=== PATIENT | female | born 1965 | race Caucasian/White ===

== ENCOUNTER 2024-07-11 20:56 | Emergency (ER) | payer BC ==
--- NOTE | 2024-07-11 21:35 | ED ---
SOB HPI - General Chief Complaint: Shortness of Breath Stated Complaint: SOB Time Seen by Provider: 07/11/24 21:16 Source: patient, RN notes reviewed Mode of arrival: ambulatory Limitations: no limitations - History of Present Illness Initial Comments: This is a 58-year-old female who presents to the emergency department for shortness of breath. States that she has been dealing with coughing, congestion, and shortness of breath for the last couple of weeks. She has gone to urgent care several times and finished a Z-Sher 4 days ago as well as a course of steroids. However, she continued to get worse and followed up yesterday. Yesterday they started her on clarithromycin and additional steroids, however she feels like she continues to getting worse. She is using nebulizer breathing treatments, which only help for around 15 minutes. States that she purchased an at home pulse ox and was concerned when it was dropping into the 80s. Denies an y fevers or chills. Cough is mildly productive. MD Complaint: shortness of breath, cough - Related Data Previous Rx's Medication Instructions Recorded Benzonatate [Tessalon Perle] 200 mg PO TID PRN #20 capsule 07/11/24 Budesonide [Pulmicort] 0.5 mg INHALATION BID #60 ml 07/11/24 Ipratropium-Albuterol Nebulize 3 ml INHALATION Q4-6H PRN #90 ml 07/11/24 [Duoneb 0.5 mg-3 mg/3 ml Soln] Allergies Allergy/AdvReac Type Severity Reaction Status Date / Time No Known Allergies Allergy Verified 07/11/24 21:02 Review of Systems ROS Statement: Those systems with pertinent positive or pertinent negative responses have been documented in the HPI. ROS Other: All systems not noted in ROS Statement are negative. Past Medical History Past Medical History: No Reported History History of Any Multi-Drug Resistant Organisms: None Reported Past Surgical History: Hernia Repair, Orthopedic Surgery Past Psychological History: No Psychological Hx Reported Smoking Status: Former smoker Past Alcohol Use History: None Reported Past Drug Use History: None Reported General Exam Limitations: no limitations General appearance: alert, in no apparent distress Head exam: Present: atraumatic, normocephalic, normal inspection Respiratory exam: Present: rales, decreased breath sounds, prolonged expiratory Cardiovascular Exam: Present: regular rate, normal rhythm Neurological exam: Present: alert, oriented X3, CN II-XII intact Psychiatric exam: Present: normal affect, normal mood Skin exam: Present: warm, dry, intact, normal color. Absent: rash Course Vital Signs 07/11/24 07/11/24 07/11/24 20:58 22:15 22:27 Temperature 98.6 F Pulse Rate 95 93 98 Respiratory 18 20 20 Rate Blood Pressure 121/78 121/71 O2 Sat by Pulse 93 L 94 L Oximetry 07/11/24 07/11/24 07/11/24 22:33 23:00 23:46 Temperature 98.7 F Pulse Rate 95 104 H Respiratory 20 20 Rate Blood Pressure 132/79 O2 Sat by Pulse 91 L 94 L Oximetry Medical Decision Making - Medical Decision Making This is a 58-year-old female who presents to the emergency department for shortness of breath. Was pt. sent in by a medical professional or institution? @ -No Did you speak to anyone other than the patient for history? @ -No Did you review nursing and triage notes? @ -Yes, and I agree, it is accurate with regards to the patient's symptoms. Were old charts reviewed? @ -No Differential Diagnosis? @ -Differential Dyspnea: Coronary syndrome, arrhythmia, tamponade, asthma, COPD, pulmonary embolism, pneumonia, pneumothorax, pulmonary effusion, anaphylaxis, diabetic ketoacidosis, flailed chest, pulmonary contusion, diaphragmatic rupture, anemia, neuromuscular, this is not meant to be an all-inclusive list. EKG interpreted by me (3pts min.)? @ -EKG interpreted by me demonstrating the following: Sinus rhythm. Ventricular rate 91 bpm, W[place] interval 129 ms, QRS duration 102 ms, QTc 414 ms. X-rays interpreted by me (1pt min.)? @ -Chest x-ray obtained. My interpretation identifies bibasilar perihilar lung markings. CT interpreted by me (1pt min.)? @ -Not obtained U/S interpreted by me (1pt. min.)? @ -Not obtained What testing was considered but not performed? (CT, X-rays, U/S, labs)? Why? @ -None What meds were considered but not given? Why? @ -None Did you discuss the management of the patient with other professionals? @ -No Did you reconcile home meds? @ -No Was smoking cessation discussed for >3mins.? @ -No Was critical care preformed (if so, how long)? @ -No Were there social determinants of health that impacted care today? How? (Homelessness, low income, unemployed, alcoholism, drug addiction, transportation, low edu. Level, literacy, decrease access to med. care, intermediate, rehab)? @ -No Was there de-escalation of care discussed even if they declined? (Discuss DNR or withdrawal of care, Hospice)? @ -No What co-morbidities impacted this encounter? (DM, HTN, Smoking, COPD, CAD, Cancer, CVA, Hep., AIDS, mental health diagnosis, sleep apnea, morbid obesity)? @ -History of smoking Was patient admitted / discharged? @ -Discharged. Lab work demonstrates leukocytosis with a white blood cell count of 18.19. CRP mildly elevated at 2.4. D-dimer and troponin negative. COVID, influenza, and RSV testing negative. Chest x-ray demonstrates bibasilar prominent perihilar lung markings suggestive of bronchitis. There is no focal consolidation. Leukocytosis likely secondary to steroid use. Her symptoms are more likely to be viral in nature. She was given a DuoNeb breathing treatment with some improvement in symptoms. Given how long she has been dealing with this I did offer admission for further management, however she declined and advised that she would rather go home. Ambulatory pulse ox obtained and she maintained an oxygen saturation of around 93-94% which then increased back up to the mid-high 90s at rest. She was just prescribed clarithromycin and prednisone, which she will take as prescribed. Refill on DuoNeb breathing treatments provided along with budesonide breathing treatments and Tessalon Perles. Strict return parameters discussed. Also advised close follow-up with her PCP. Patient discharged home in stable condition. Case discussed with ED attending Dr. Mckay. Return precautions reviewed in depth, the patient is instructed to return to the emergency department with any new, worsening, or concerning symptoms. Patient verbalized understanding. Undiagnosed new problem with uncertain prognosis? @ -None Drug Therapy requiring intensive monitoring for toxicity (Heparin, Nitro, Insulin, Cardizem)? @ -None Were any procedures done? @ -None Diagnosis/symptom? @ -Bronchitis Acute, or Chronic, or Acute on Chronic? @ -Acute Uncomplicated (without systemic symptoms) or Complicated (systemic symptoms)? @ -Uncomplicated Side effects of treatment? @ -None Exacerbation, Progression, or Severe Exacerbation] @ -Not applicable Poses a threat to life or bodily function? @ -No - Lab Data Result diagrams: 07/11/24 21:57 07/11/24 21:57 Lab Results 07/11/24 07/11/24 07/11/24 Range/Units 21:57 21:57 21:57 WBC 18.19 H (4.50-10.00) 10*3/uL RBC 4.36 (4.10-5.20) 10*6/uL Hgb 13.3 (12.0-15.0) g/dL Hct 38.4 (37.2-46.3) % MCV 88.1 (80.0-97.0) fL MCH 30.5 (27.0-32.0) pg MCHC 34.6 (32.0-37.0) g/dL Plt Count 340 (140-440) 10*3/uL MPV 9.9 (9.5-12.2) fL Immature Gran % (Auto) 0.4 % Neutrophils % 81.3 % Lymphocytes % 9.8 % Monocytes % 7.9 % Eosinophils % 0.3 % Basophils % 0.3 % Immature Gran # 0.07 H (0.00-0.04) 10*3/uL Neutrophils # 14.80 H (1.80-7.70) 10*3/uL Lymphocytes # 1.79 (0.90-5.00) 10*3/uL Monocytes # 1.43 H (0.20-1.00) 10*3/uL Eosinophils # 0.05 (0.04-0.35) 10*3/uL Basophils # 0.05 (0.00-0.10) 10*3/uL PT 10.9 (10.0-12.5) sec INR 1.0 (<1.2) APTT 21.8 L (22.0-30.0) sec D-Dimer 0.51 (<0.60) mg/L FEU Sodium 137 (137-145) mmol/L Potassium 4.6 (3.5-5.1) mmol/L Chloride 101 (98-107) mmol/L Carbon Dioxide 25 (22-30) mmol/L Anion Gap 11 mmol/L BUN 10 (7-17) mg/dL Creatinine 0.67 (0.52-1.04) mg/dL Est GFR (CKD-EPI)AfAm >90 (>60 ml/min/1.73 sqM) Est GFR (CKD-EPI)NonAf >90 (>60 ml/min/1.73 sqM) Glucose 126 H (74-99) mg/dL Plasma Lactic Acid Moises (0.7-2.0) mmol/L Calcium 9.9 (8.4-10.2) mg/dL Magnesium 2.1 (1.6-2.3) mg/dL Total Bilirubin 0.7 (0.2-1.3) mg/dL AST 118 H (14-36) U/L ALT 141 H (4-34) U/L Alkaline Phosphatase 145 H (38-126) U/L Troponin I (0.000-0.034) ng/mL C-Reactive Protein 2.4 H (<1.0) mg/dL NT-Pro-B Natriuret Pep 43 pg/mL Total Protein 7.5 (6.3-8.2) g/dL Albumin 4.4 (3.5-5.0) g/dL Influenza Type A (PCR) (Not Detectd) Influenza Type B (PCR) (Not Detectd) RSV (PCR) (Not Detectd) SARS-CoV-2 (PCR) (Not Detectd) 07/11/24 07/11/24 07/11/24 Range/Units 21:57 21:57 21:57 WBC (4.50-10.00) 10*3/uL RBC (4.10-5.20) 10*6/uL Hgb (12.0-15.0) g/dL Hct (37.2-46.3) % MCV (80.0-97.0) fL MCH (27.0-32.0) pg MCHC (32.0-37.0) g/dL Plt Count (140-440) 10*3/uL MPV (9.5-12.2) fL Immature Gran % (Auto) % Neutrophils % % Lymphocytes % % Monocytes % % Eosinophils % % Basophils % % Immature Gran # (0.00-0.04) 10*3/uL Neutrophils # (1.80-7.70) 10*3/uL Lymphocytes # (0.90-5.00) 10*3/uL Monocytes # (0.20-1.00) 10*3/uL Eosinophils # (0.04-0.35) 10*3/uL Basophils # (0.00-0.10) 10*3/uL PT (10.0-12.5) sec INR (<1.2) APTT (22.0-30.0) sec D-Dimer (<0.60) mg/L FEU Sodium (137-145) mmol/L Potassium (3.5-5.1) mmol/L Chloride (98-107) mmol/L Carbon Dioxide (22-30) mmol/L Anion Gap mmol/L BUN (7-17) mg/dL Creatinine (0.52-1.04) mg/dL Est GFR (CKD-EPI)AfAm (>60 ml/min/1.73 sqM) Est GFR (CKD-EPI)NonAf (>60 ml/min/1.73 sqM) Glucose (74-99) mg/dL Plasma Lactic Acid Moises 1.4 (0.7-2.0) mmol/L Calcium (8.4-10.2) mg/dL Magnesium (1.6-2.3) mg/dL Total Bilirubin (0.2-1.3) mg/dL AST (14-36) U/L ALT (4-34) U/L Alkaline Phosphatase (38-126) U/L Troponin I <0.012 (0.000-0.034) ng/mL C-Reactive Protein (<1.0) mg/dL NT-Pro-B Natriuret Pep pg/mL Total Protein (6.3-8.2) g/dL Albumin (3.5-5.0) g/dL Influenza Type A (PCR) Not Detected (Not Detectd) Influenza Type B (PCR) Not Detected (Not Detectd) RSV (PCR) Not Detected (Not Detectd) SARS-CoV-2 (PCR) Not Detected (Not Detectd) - Radiology Data Radiology results: report reviewed, image reviewed Disposition Clinical Impression: Bronchitis Disposition: HOME SELF-CARE Instructions (If sedation given, give patient instructions): Acute Bronchitis ( ED) Additional Instructions: Return to the emergency department with any new, worsening, or concerning symptoms. Begin using the budesonide breathing treatments twice daily. You can use the DuoNeb breathing treatments every 4-6 hours. You can also try taking the Tessalon Perles up to every 8 hours to help with coughing. Follow up with your primary care provider in 1-2 days. Prescriptions: Ipratropium-Albuterol Nebulize [Duoneb 0.5 mg-3 mg/3 ml Soln] 3 ml INHALATION Q4-6H PRN #90 ml PRN Reason: Shortness Of Breath Budesonide [Pulmicort] 0.5 mg INHALATION BID #60 ml Benzonatate [Tessalon Perle] 200 mg PO TID PRN #20 capsule PRN Reason: Cough Is patient prescribed a controlled substance at d/c from ED?: No Referrals: None,Stated [REFERRING] - 1-2 days Time of Disposition: 23:12
--- NOTE | 2024-07-11 21:40 | XR ---
EXAMINATION TYPE: XR chest 2V DATE OF EXAM: 07/11/2024 9:36 PM COMPARISON: None TECHNIQUE: XR chest 2V Frontal and lateral views of the chest. CLINICAL INDICATION:Female, 58 years old with history of difficulty breathing; FINDINGS: Lungs/Pleura: There is no evidence of pleural effusion, focal consolidation, or pneumothorax. Bibasi lar prominent perihilar lung markings. Pulmonary vascularity: Unremarkable. Heart/mediastinum: Cardiomediastinal silhouette is unremarkable. Atherosclerotic calcifications are seen in the aorta. Musculoskeletal: No acute osseous pathology. IMPRESSION: Bibasilar prominent perihilar lung markings. Correlate for bronchitis. No focal consolidation. [facility], , 07/11/2024 9:37 PM
[2024-07-11 22:04] LABS: Basophils # (A) 0.05 10*3/uL (0.00-0.10); Basophils % (A) 0.3 %; Eosinophils # (A) 0.05 10*3/uL (0.04-0.35); Eosinophils % (A) 0.3 %; HCT 38.4 % (37.2-46.3); HGB 13.3 g/dL (12.0-15.0); Lymphocytes # (A) 1.79 10*3/uL (0.90-5.00); Lymphocytes % (A) 9.8 %; MCH 30.5 pg (27.0-32.0); MCHC 34.6 g/dL (32.0-37.0); MCV 88.1 fL (80.0-97.0); Mean Platelet Volume 9.9 fL (9.5-12.2); Monocytes # (A) 1.43 10*3/uL (0.20-1.00); Monocytes % (A) 7.9 %; Neutrophils % (A) 81.3 %; Platelet Count 340 10*3/uL (140-440); RBC 4.36 10*6/uL (4.10-5.20); RDW 12.5 % (11.5-14.5); WBC 18.19 10*3/uL (4.50-10.00)
[2024-07-11 22:16] VITALS: RESP 20
[2024-07-11 22:18] LABS: ALT 141 U/L (4-34); AST 118 U/L (14-36); African American GFR (CKD) >90 (>60 ml/min/1.73 sqM); Albumin 4.4 g/dL (3.5-5.0); Alkaline Phosphatase 145 U/L (38-126); Anion Gap 11 mmol/L; Blood Urea Nitrogen 10 mg/dL (7-17); C Reactive Protein 2.4 mg/dL (<1.0); Calcium 9.9 mg/dL (8.4-10.2); Carbon Dioxide 25 mmol/L (22-30); Chloride 101 mmol/L (98-107); Glucose 126 mg/dL (74-99); Magnesium 2.1 mg/dL (1.6-2.3); Non-African American GFR(CKD) >90 (>60 ml/min/1.73 sqM); Potassium 4.6 mmol/L (3.5-5.1); Sodium 137 mmol/L (137-145); Total Bilirubin 0.7 mg/dL (0.2-1.3); Total Protein 7.5 g/dL (6.3-8.2)
[2024-07-11 22:20] LABS: Prothrombin Time 10.9 sec (10.0-12.5)
[2024-07-11 22:24] LABS: NT-Pro-B-Type Natriuretic Pept 43 pg/mL
[2024-07-11] MEDS: IPRATROPIUM-ALBUTEROL 3 ML NEB INHALATION STA (22:25)
[2024-07-11 22:27] LABS: Partial Thromboplastin Time 21.8 sec (22.0-30.0)
[2024-07-11 22:40] LABS: Influenza A Not Detected (Not Detectd); Influenza B Not Detected (Not Detectd); RSV Not Detected (Not Detectd)
[2024-07-11] MEDS: methylPREDNISolone SOD SUCCI 125 MG/2 ML VIAL IV STA (23:10)
[2024-07-11 23:47] VITALS: BP 132/79; PULSE 104; TEMP 98.7
== END 2024-07-11 23:47 | disposition home or self-care (01) ==
LOC: EC 20:56
DX: J40 Bronchitis, not specified as acute or chronic (principal); Z11.52 Encounter for screening for COVID-19; Z87.891 Personal history of nicotine dependence
CPT/HCPCS: 36415; 71046; 80053; 83605; 83735; 83880; 84145; 84484; 85025; 85379; 85610; 85730; 86140; 87636; 93005; 94640; 99285